=== PATIENT | male | born 1960 | race American Indian/Alaskan Native ===

== ENCOUNTER 2018-12-17 22:32 | Emergency (ER) | payer BC, OTHER ==
[2018-12-17] MEDS ORDERED: ZOFRAN IV ONE (23:28)
[2018-12-17] MEDS ORDERED: MORPHINE IV ONE (23:28)
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
[2018-12-18 01:13] VITALS: BP 153/98
== END 2018-12-18 01:12 | disposition home or self-care (01) ==
LOC: ED 22:32
DX: S16.1XXA Strain of muscle, fascia and tendon at neck level, initial encounter (principal); S39.012A Strain of muscle, fascia and tendon of lower back, initial encounter; S70.02XA Contusion of left hip, initial encounter; I10 Essential (primary) hypertension; E11.9 Type 2 diabetes mellitus without complications; F17.200 Nicotine dependence, unspecified, uncomplicated; V89.2XXA Person injured in unspecified motor-vehicle accident, traffic, initial encounter; Y93.89 Activity, other specified; Y92.488 Other paved roadways as the place of occurrence of the external cause; Y99.8 Other external cause status
CPT/HCPCS: 70450; 72100; 72125; 73502; 96374; 96375; 99284; J2270; J2405